=== PATIENT | male | born 1970 ===

== ENCOUNTER 2017-11-24 07:54 | Day surgery (SDC) | payer OTHER ==
[2017-11-24 08:07] VITALS: BMI 24.6
[2017-11-24] MEDS ORDERED: Lactated Ringer's 500 ML IV ONE (08:09)
[2017-11-24] MEDS ORDERED: Propofol 10 mg/ml Inj (20 ML) ONE (08:58)
[2017-11-24 09:26] VITALS: TEMP 96.8
[2017-11-24 09:42] VITALS: BP 112/70; PULSE 70; RESP 16; O2SAT 98
== END 2017-11-24 10:01 | disposition home or self-care (01) ==
LOC: H.ENDO 07:54
PROVIDERS: ATTEND Internal Medicine Gastroenterology
DX: K92.2 Gastrointestinal hemorrhage, unspecified (principal); K63.89 Other specified diseases of intestine; K64.8 Other hemorrhoids
CPT/HCPCS: 45378; J2001; J2704; J7120